=== PATIENT | female | born 1995 | race Caucasian/White ===

== ENCOUNTER 2016-11-10 05:28 | Emergency (ER) | payer MEDICAID ==
[~2016-11-10] VITALS: Ht 152.4 cm; Wt 60.4 kg
[2016-11-10 06:05] LABS: INFLUENZA A NONE DETECTED (NONE DETECT); INFLUENZA B NONE DETECTED (NONE DETECT)
[2016-11-10 06:26] LABS: HEMATOCRIT 38.9 % (37.0-47.0); HEMOGLOBIN 12.8 g/dl (12.0-16.0); IMMATURE GRANULOCYTES 0.5 % (0.0-1.0); MEAN CELL VOLUME 82.8 fL CALC (80.0-100.0); MEAN CORPUSCULAR HGB 27.2 pG CALC (26.0-32.0); MEAN CORPUSCULAR HGB CONC 32.9 g/L CALC (32.0-36.0); NEUT# 14.71 thou/uL (2.00-7.15); RED BLOOD COUNT 4.7 mill/uL (4.20-5.60); RED CELL DISTRI WIDTH 14.6 % (11.5-15.5)
[2016-11-10] MEDS ORDERED: AMOXICILLIN500 MG PO (06:31)
[2016-11-10] MEDS ORDERED: CLARITIN10 M1 PO (06:31)
[2016-11-10] MEDS ORDERED: NAPROSYN500 MG PO (06:31)
[2016-11-10 06:40] LABS: ALBUMIN 4.2 g/dL (3.2-5.0); ALKALINE PHOSPHATASE 113 u/l (38-126); ANION GAP 17 (6-22 (CALC)); BILIRUBIN, TOTAL 0.7 mg/dL (0.0-1.4); BUN 13 mg/dL (7-17); BUN/CREATININE RATIO 21 (12-20 (CALC)); CALCIUM 9.3 mg/dL (8.4-10.2); CARBON DIOXIDE 21 mmol/l (22-30); CHLORIDE 106 mmol/l (95-108); CREATININE 0.6 mg/dL (0.5-1.0); GFR > 60 ML/MIN (>=60 (CALC)); GFR FOR AFR.AMER. > 60 ML/MIN (>=60 (CALC)); GLUCOSE 158 mg/dL (65-105); POTASSIUM 3.8 mmol/l (3.5-5.1); SGOT/AST 26 u/l (14-36); SGPT/ALT 40 u/l (9-52); SODIUM 140 mmol/l (137-146); TOTAL PROTEIN 7.1 g/dL (6.3-8.2)
[2016-11-10 06:58] VITALS: BP 133/89
== END 2016-11-10 07:08 | disposition home or self-care (01) | DRG 153 ==
LOC: ED 05:28
PROVIDERS: Emergency Medicine
DX: J02.0 Streptococcal pharyngitis (principal); M79.1 Myalgia; R50.9 Fever, unspecified

== ENCOUNTER 2018-12-25 14:35 | Emergency (ER) | payer SELFPAY ==
[~2018-12-25] VITALS: Ht 154.9 cm; Wt 62.0 kg
[~2018-12-25 14:35] MED LIST: AMOXICILLIN500 MG PO; CLARITIN10 M1 PO; NAPROSYN500 MG PO
[2018-12-25 16:10] VITALS: BP 129/74
== END 2018-12-25 16:10 | disposition home or self-care (01) | DRG 563 ==
LOC: ED 14:35
DX: S86.912A Strain of unspecified muscle(s) and tendon(s) at lower leg level, left leg, initial encounter (principal); X50.0XXA Overexertion from strenuous movement or load, initial encounter; Y93.39 Activity, other involving climbing, rappelling and jumping off

== ENCOUNTER 2019-10-30 18:09 | Emergency (ER) | payer MEDICAID ==
[~2019-10-30] VITALS: Ht 154.9 cm; Wt 61.0 kg
[2019-10-30] MEDS ORDERED: ZOLOFT50 MG PO (18:51)
[2019-10-30 18:58] LABS: HEMATOCRIT 41.4 % (37.0-47.0); HEMOGLOBIN 13.3 g/dl (12.0-16.0); IMMATURE GRANULOCYTES 0.3 % (0.0-5.0); MEAN CELL VOLUME 85.2 fL CALC (80.0-100.0); MEAN CORPUSCULAR HGB 27.4 pG CALC (26.0-32.0); MEAN CORPUSCULAR HGB CONC 32.1 g/dL CAL (32.0-36.0); NEUT# 7.74 thou/uL (2.00-7.15); RED BLOOD COUNT 4.86 mill/uL (4.20-5.60); RED CELL DISTRI WIDTH 13.2 % (11.5-15.5)
[2019-10-30 19:12] LABS: ALBUMIN 4.5 g/dL (3.2-5.0); ALKALINE PHOSPHATASE 77 u/l (38-126); ANION GAP 13 (6-22 (CALC)); BILIRUBIN, TOTAL 0.7 mg/dL (0.0-1.4); BUN 9 mg/dL (7-17); BUN/CREATININE RATIO 13 (12-20 (CALC)); CARBON DIOXIDE 25 mmol/l (22-30); CHLORIDE 102 mmol/l (95-108); CREATININE 0.7 mg/dL (0.5-1.0); ETHYL ALCOHOL 0 mg/dl (0-30); GFR > 60 ML/MIN (>=60 (CALC)); GFR FOR AFR.AMER. > 60 ML/MIN (>=60 (CALC)); POTASSIUM 4.3 mmol/l (3.5-5.1); SGOT/AST 22 u/l (14-36); SODIUM 136 mmol/l (137-146); TOTAL PROTEIN 7.3 g/dL (6.3-8.2)
[2019-10-30 20:04] LABS: URINE BILIRUBIN - DIPSTICK NEGATIVE (NEGATIVE); URINE BLOOD DIPSTICK NEGATIVE (NEGATIVE); URINE COLOR YELLOW; URINE GLUCOSE - DIPSTICK NEGATIVE (NEGATIVE); URINE KETONE NEGATIVE (NEGATIVE); URINE LEUK ESTERASE TRACE (NEGATIVE); URINE NITRITE - DIPSTICK NEGATIVE (Negative); URINE PROTEIN - DIPSTICK NEGATIVE (NEG-TRACE); URINE SPECIFIC GRAVITY >=1.030; URINE UROBILINOGEN - DIPSTICK 0.2 E.U./dL (0.2)
[2019-10-30 20:49] VITALS: BP 145/89
== END 2019-10-30 20:49 ==
LOC: ED 18:09
PROVIDERS: Family Medicine
DX: T39.1X2A Poisoning by 4-Aminophenol derivatives, intentional self-harm, initial encounter (principal); T18.9XXA Foreign body of alimentary tract, part unspecified, initial encounter; F15.10 Other stimulant abuse, uncomplicated; F17.200 Nicotine dependence, unspecified, uncomplicated; X83.8XXA Intentional self-harm by other specified means, initial encounter

== ENCOUNTER 2021-09-16 20:21 | Emergency (ER) | payer OTHER ==
[~2021-09-16] VITALS: Ht 154.9 cm; Wt 60.0 kg
[~2021-09-16 20:21] MED LIST changes: +ZOLOFT50 MG PO
[2021-09-16 20:30] VITALS: BP 124/81
[2021-09-16 20:45] VITALS: BP 118/74
[2021-09-16] MEDS ORDERED: BACTRIM DS1 TAB PO (20:45)
[2021-09-16] MEDS ORDERED: VOLTAREN75 MG PO (20:45)
[2021-09-16 20:59] VITALS: BP 118/74
[2021-09-16 21:00] VITALS: BP 124/78
== END 2021-09-16 21:36 | disposition home or self-care (01) ==
LOC: ED 20:21
DX: L03.116 Cellulitis of left lower limb (principal); F17.200 Nicotine dependence, unspecified, uncomplicated